=== PATIENT | female | born 1965 | race Caucasian/White ===

== ENCOUNTER 2022-03-29 09:32 | Day surgery (SDC) | payer BC ==
[~2022-03-29 09:32] MED LIST: LACTATED RINGERS 1,000 ML IV SCH; LIDOCAINE 1% (10MG/ML) FOR IV START INTRADERMA PRN
[2022-03-29] MEDS ORDERED: LACTATED RINGERS 1,000 ML IV ONE (10:15)
[2022-03-29 10:16] VITALS: TEMP 97.4
[2022-03-29] MEDS ORDERED: PROPOFOL 10 MG/ML 20 ML VIAL IV ONE (11:22)
--- NOTE | 2022-03-29 11:44 | P.PCN ---
Date of Procedure: 03/29/22 Procedure(s) Performed: BRIEF HISTORY: Patient is a 56-year-old pleasant white female scheduled for an elective colonoscopy as a part of screening for colorectal neoplasia PROCEDURE PERFORMED: Colonoscopy snare polypectomy. PREOPERATIVE DIAGNOSIS: Screening for colon cancer. IV sedation per Anesthesia. PROCEDURE: After informed consent was obtained, the patient, was brought into the endoscopy unit. IV sedation was administered by Anesthesia under continuous monitoring. Digital rectal examination was normal. Initially the Olympus CF-160 flexible video colonoscope was then inserted in the rectum, gradually advanced into the cecum without any difficulty. Careful examination was performed as the scope was gradually being withdrawn. Ileocecal valve and the appendiceal orifice were visualized and appeared normal. Prep was excellent. Mucosa of the cecum, had a 4 cm broad-based polyp that was partially removed in a piecemeal fashion and approximately 50% the polyp was removed. Rest of the ascending colon, transverse colon, descending colon, sigmoid colon, and rectum appeared normal. Retroflexion was performed in the rectum and no lesions were seen. The patient tolerated the procedure well. IMPRESSION: 4 cm broad-based polyp in the base of the cecum status post piecemeal snare polypectomy and only 50% the polyp was removed Rest of the colon appeared normal RECOMMENDATIONS: Findings of this examination were discussed with the patient well as her family. She was advised to follow with the biopsy results. Since been on and 1 week and based the biopsy results will plan a repeat colonoscopy in 3-4 weeks.
[2022-03-29 11:52] VITALS: RESP 16
[2022-03-29 12:03] VITALS: BP 123/78; PULSE 61
== END 2022-03-29 12:25 | disposition home or self-care (01) ==
LOC: ORWHC2ENDO 09:32
PROVIDERS: ATTEND Internal Medicine Gastroenterology
DX: Z12.11 Encounter for screening for malignant neoplasm of colon (principal); D12.0 Benign neoplasm of cecum; Z80.0 Family history of malignant neoplasm of digestive organs; N39.0 Urinary tract infection, site not specified; Z79.2 Long term (current) use of antibiotics; Z79.52 Long term (current) use of systemic steroids; Z79.899 Other long term (current) drug therapy
CPT/HCPCS: 88305; 45385; J2704